=== PATIENT | male | born 1970 | race Caucasian/White ===

== ENCOUNTER → 2022-11-07 | Outpatient (CLI) | payer BC ==
--- NOTE | 2022-11-07 13:17 | Diagnostic Imaging Report ---
INDICATION: PAIN OF LEFT KNEE JOINT TECHNIQUE: 4 views of the left knee CORRELATION STUDY: None FINDINGS: Mild joint space narrowing both medially and laterally. Marginal osteophyte formation noted laterally. Narrowing at the patellofemoral compartment. More focal bony spur like projection posterior lateral talus may accentuate patellofemoral narrowing. There is presence of small suprapatellar joint effusion. Multiple sizable calcified intra-articular loose bodies are present, measuring up to 2.6 cm. IMPRESSION: 1. Moderately advanced multi compartment degenerative changes left knee. Negative acute bony abnormality. Rather sizable calcified intra-articular loose bodies are present. Dictated by: Dictated on workstation # [id number]
== END ==
LOC: ORTHO 09:44
PROVIDERS: ATTEND Orthopaedic Surgery
DX: M23.42 Loose body in knee, left knee (principal); M17.12 Unilateral primary osteoarthritis, left knee
CPT/HCPCS: 73564; G0463; 99203

== ENCOUNTER 2022-11-24 05:33 | Outpatient (CLI) | payer BC ==
[~2022-11-24] VITALS: Ht 167.7 cm; Wt 70.5 kg
[2022-11-24] MEDS ORDERED: IBUP-1779 PO (10:08)
== END 2022-11-24 11:56 | disposition home or self-care (01) ==
LOC: PREOP 05:33
PROVIDERS: ATTEND Orthopaedic Surgery
DX: Z01.818 Encounter for other preprocedural examination (principal)

== ENCOUNTER 2022-12-01 06:00 | Day surgery (SDC) | payer BC ==
[2022-12-01] VITALS (11 sets, daily range): BP systolic 94–128; BP diastolic 57–83
[~2022-12-01] VITALS: Ht 167.7 cm; Wt 70.5 kg
[~2022-12-01 06:00] MED LIST: IBUP-1779 PO
[2022-12-01] MEDS ORDERED: ceFAZolin INJECTION 2,000 MG in NS (IVPB) 50 ML IV ONE (06:30)
[2022-12-01] MEDS: LACTATED RINGERS 1,000 ML IV PRN ×2 (06:32→09:32)
[2022-12-01] MEDS ORDERED: CATHETER FLUSH 10 ML SYR IVP PRN (06:45)
[2022-12-01] MEDS ORDERED: BUP/EPI 0.25% 1:200,000 (MARCAINE) 30 ML VIAL ONE (07:03)
[2022-12-01] MEDS ORDERED: ONDANSETRON 4 MG/2 ML (SDV) Z0FRAN ONE (07:08)
[2022-12-01] MEDS ORDERED: proPOfol 200 MG/20 ML (DIPRIVAN) VIAL IV ONE (07:08)
[2022-12-01] MEDS ORDERED: fentaNYL INJ 100 MCG/2 ML AMP ONE (07:08)
[2022-12-01] MEDS ORDERED: MIDAZOLAM 2 MG/2 ML (VERSED) VIAL ONE (07:08)
[2022-12-01] MEDS ORDERED: LIDOCAINE PF 2% 5 ML (XYLOCAINE) VIAL ONE (07:08)
--- NOTE | 2022-12-01 08:46 | Progress Note-Pre Operative ---
Pre-Operative Progress Note Date of Available H&P: Nov 07, 2022 Date H&P Reviewed: December 01, 2022 Time H&P Reviewed: 08:40 History & Physical: H&P Reviewed, Patient Examed, No changes noted Pre-Operative Diagnosis: Left Knee Loose Bodies HEIDY RIVER MD December 01, 2022 08:46
[2022-12-01] MEDS ORDERED: GLYCOPYRROLATE 0.2 MG/ML (ROBINUL) 2 ML VIAL ONE (09:12)
[2022-12-01] MEDS ORDERED: KETOROLAC 30 MG/ML VIAL ONE (09:26)
[2022-12-01] MEDS ORDERED: SEVOFLURANE (ULTANE) 15 ML INHAL SOLN ONE (09:27)
[2022-12-01] MEDS ORDERED: BUP/EPI 0.25% 1:200,000 (MARCAINE) 30 ML VIAL INJ ONE (09:31)
--- NOTE | 2022-12-01 09:43 | Operative Report - Ortho ---
Operative Report Surgeon (s)/Yarder Puncher (s) Surgeon HEIDY RIVER MD Yarder Puncher n/a Pre-Operative Diagnosis Left Knee Loose Bodies Post-Operative Diagnosis same Operative Report Date of Procedure: December 01, 2022 Name of Procedure Performed: Left Knee Arthroscopy with Removal of Left Knee Loose Body Description & Findings After obtaining informed consent and marking the patient in the preoperative holding area, the patient was administered IV antibiotics and taken to the operating room. General anesthesia was induced. The right lower extremity was placed in the well leg ware and the left leg was placed in the arthroscopic ware. Surgical timeout was taken. The left lower extremity was prepped and draped in the usual sterile fashion. An anterolateral portal was established and a diagnostic knee arthroscopy was performed with the following findings: the patellofemoral portion of the joint demonstrated grade III change, the patella tracked well through the trochlear groove, the lateral gutter had a large loose body, the medial meniscus was intact, grade III change in the medial compartment, ACL was intact, no loose bodies in the notch, lateral compartment with intact meniscus and grade III articular cartilage change. An anteromedial portal was established. Probe was inserted and the notch was explored. Loose bodies were not flushed from the notch. Suprapatellar portal was established. Loose body was removed from the lateral gutter using a h emostat. Instruments were withdrawn. Wounds were closed with 3-0 nylon and dressed with xeroform, 4x4s, ABD, cast padding, and PORTIA wrap. Patient tolerated the procedure well and was stable to the recovery room. Anesthesia Type General Estimated Blood Loss minimal Specimen(s) collected/removed None HEIDY RIVER MD December 01, 2022 09:43
[2022-12-01] MEDS ORDERED: OXC5T PO (09:45)
[2022-12-01] MEDS ORDERED: ONDANSETRON 4 MG/2 ML (SDV) Z0FRAN IVP PRN (09:45)
[2022-12-01] MEDS ORDERED: HYDROmorphone 2 MG/ML VIAL (DILAUDID) IV ONE (09:45)
[2022-12-01] MEDS ORDERED: oxyCODONE/APAP 5/325MG (PERCOCET 5) TABLET ONE (11:13)
[2022-12-01] MEDS ORDERED: oxyCODONE/APAP 5/325MG (PERCOCET 5) TABLET PO ONE (11:15)
== END 2022-12-01 11:55 | disposition home or self-care (01) ==
LOC: SDC 06:00
PROVIDERS: ATTEND Orthopaedic Surgery
DX: M23.42 Loose body in knee, left knee (principal); M94.8X6 Other specified disorders of cartilage, lower leg; M17.12 Unilateral primary osteoarthritis, left knee; Z87.891 Personal history of nicotine dependence; Z28.310 Unvaccinated for COVID-19
CPT/HCPCS: 87081

== ENCOUNTER → 2022-12-14 | Outpatient (CLI) | payer BC ==
[~2022-12-14] MED LIST changes: +OXC5T PO
== END ==
LOC: ORTHO 10:01
PROVIDERS: ATTEND Orthopaedic Surgery
DX: Z47.89 Encounter for other orthopedic aftercare (principal)